=== PATIENT | female | born 1955 | race Asian ===

== ENCOUNTER 2022-10-19 13:41 | Inpatient (IN) | payer OTHER ==
[~2022-10-19] VITALS: Ht 157.5 cm; Wt 79.8 kg
--- NOTE | 2022-10-19 14:17 | NUR ---
[id number], from home, c/o rapid heart rate 180, Adenosine 12 mg given and converted Afib 108, denies pain A/O X4 22G STARED IN LEFT HAND NO S/S OF INFLITRATION.
[2022-10-19 14:26] LABS: BASOPHILS % (AUTO) 0.1 % (0.0-2.0); CALCIUM, SERUM 8.7 mg/dL (8.5-10.1); CARBON DIOXIDE 33 mmol/L (21-32); CHLORIDE 104 mmol/L (98-107); CREATININE 1.2 mg/dL (0.6-1.3); EOSINOPHILS % (AUTO) 0.5 % (0.0-6.0); GLUCOSE 134 mg/dL (74-106); HEMATOCRIT 52 % (33-45); HEMOGLOBIN 16.9 g/dL (11.5-14.8); LYMPHOCYTES # (AUTO) 1.5 K/uL (0.8-4.8); LYMPHOCYTES % (AUTO) 12.3 % (20.0-44.0); MEAN CORPUSCULAR HGB CONC 32 g/dl (31.0-36.0); MEAN CORPUSCULAR VOLUME 96 fL (82-100); MONOCYTES % (AUTO) 8.6 % (2.0-12.0); NEUTROPHILS # (AUTO) 9.6 K/uL (1.8-8.9); NEUTROPHILS % (AUTO) 78.5 % (43.0-81.0); PLATELET COUNT (AUTO) 229 K/uL (150-450); POTASSIUM 4.1 mmol/L (3.5-5.1); RED BLOOD CELL COUNT(AUTO) 5.47 MIL/uL (4.0-5.2); SODIUM SERUM 140 mmol/L (136-145); UREA NITROGEN, BLOOD 31 mg/dL (7-18); WHITE BLOOD COUNT (AUTO) 12.2 K/uL (4.3-11.0)
--- NOTE | 2022-10-19 14:55 | NUR ---
PT'S AFIB HAS IMPROVED HR 94
--- NOTE | 2022-10-19 15:23 | NUR ---
MOVE SHEET SUBMITTED.
[2022-10-19] MEDS ORDERED: METO25TA20 PO (15:48)
[2022-10-19] MEDS ORDERED: FURO20TA4 PO (15:48)
[2022-10-19] MEDS ORDERED: LEVO50TA8 PO (15:48)
[2022-10-19] MEDS ORDERED: RIVA10TA PO (15:48)
[2022-10-19] MEDS ORDERED: ATOR80TA PO (15:48)
[2022-10-19] MEDS ORDERED: TIOT4MIS3 INH (15:48)
[2022-10-19] MEDS ORDERED: ALBU90AE INH (15:48)
[2022-10-19] MEDS ORDERED: ASPIRIN 81 MG TAB.CHEW ONE (15:57)
[2022-10-19] MEDS ORDERED: ASPIRIN 81 MG TAB.CHEW PO ONE (16:00)
[2022-10-19] MEDS ORDERED: ASPIRIN 325 MG TABLET ONE (16:13)
--- NOTE | 2022-10-19 16:38 | NUR ---
COVID SWAB COLLECTED AND SENT TO LAB
--- NOTE | 2022-10-19 17:38 | NUR ---
room 325-1
[2022-10-19] MEDS ORDERED: Z GUARD REMEDY 4 OZ OINT TP PRN (18:00)
[2022-10-19] MEDS ORDERED: ACETAMINOPHEN 325 MG TABLET PO PRN (18:00)
[2022-10-19] MEDS ORDERED: MAGNESIUM HYDROXIDE 30 ML UDC PO PRN (18:00)
[2022-10-19] MEDS ORDERED: MAG HYDROX/AL HYDROX/SIMETH 30 ML UDC PO PRN (18:00)
[2022-10-19] MEDS ORDERED: ONDANSETRON HCL/PF 4 MG/2 ML VIAL IVP PRN (18:00)
[2022-10-19] MEDS ORDERED: METOPROLOL TARTRATE 25 MG TABLET PO SCH (18:00)
[2022-10-19] MEDS ORDERED: ENOXAPARIN SODIUM 40 MG/0.4 ML DISP.SYRIN SQ SCH (18:00)
--- NOTE | 2022-10-19 18:10 | NUR ---
report given to cami ROMAN for inpatient admission.
--- NOTE | 2022-10-19 18:42 | NUR ---
PT WAS TRANSFERED TO 3W IN STABLE CONDITION. CONTROLED AFIB NOTED ON THE MONITOR RATE OF 96. BREATHING IS WAS EVEN AND UNLABORED A/O X4
--- NOTE | 2022-10-19 19:00 | NUR ---
noc rn note received patient already in room. a/ox4. no s/s of apparent distress on room air. denies pain. will cont. with admission process.
--- NOTE | 2022-10-19 19:30 | NUR ---
ADMISSION NOTE RECEIVED PATIENT ALREADY IN ROOM, CAME IN AROUND 1840 PER REPORT. PATIENT A/OX4. NO S/S OF APPARENT DISTRESS ON 4LPM OF O2 VIA NC. DENIES ANY PAIN NOR CHEST PAIN. READING NSR ON THE TELE MONITOR WITH 88 BPM AT THIS TIME. IV ACCESS ON LT. HAND 22G INTACT AND PATENT. PATIENT WISHES TO BE FULL CODE. NEW ID BAND ON PATIENT. BELONGINGS CHECKED AND SIGNED FOR. REFUSED THOROUGH SKIN ASSESSMENT (REFUSED TO TAKE OF PANTS AND SPORTS BRA) BUT PER PATIENT HER SKIN INTACT. PATIENT ORIENTED IN THE UNIT AND THE USE OF CALL LIGHT. SAFETY IN PLACE. WILL CONTINUE WITH PATIENT'S PLAN OF CARE AND WILL FOLLOW THROUGH DOCTOR'S ORDERS.
[2022-10-19 20:00] VITALS: BP 140/69
[2022-10-19] MEDS: IV NS 0.9% 1,000 ML IV PRN (20:18)
--- NOTE | 2022-10-19 20:27 | NUR ---
noc rn note patient's scheduled 1800 enoxaparin and metoprolol given late. New admission, pharmacy said cannot change the time anymore and just note.
[2022-10-19] MEDS ORDERED: ATORVASTATIN CALCIUM PO SCH (22:00)
[2022-10-19] MEDS ORDERED: ALBUTEROL SULFATE 8 GM HFA.AER.AD IH PRN (22:30)
[2022-10-19] MEDS ORDERED: ATORVASTATIN 40 MG TABLET PO ONE (22:30)
--- NOTE | 2022-10-19 22:31 | NUR ---
noc rn note Called [facility], talked to Mary, pharmacist since verified home medications of patient with patient. Pharmacists to change Xarelto dose for tomorrow HS since Lovenox was already given tonight and patient said she takes her Xarelto every night. Per hospitalist, Saray, D/C lovenox and resume Xarelto for tomorrow. also, per patient her Metoprolol is 37.5 mg BID, Atorvastatin 80mg-- already changed by Pharmacist. Per patient someone could bring in her Stiolto INH tomorrow since Pharmacist said they do not carry medication here. orders carried out.
[2022-10-20] VITALS: BP 134/74
[2022-10-20 06:36] LABS: BASOPHILS % (AUTO) 0.1 % (0.0-2.0); EOSINOPHILS % (AUTO) 0.4 % (0.0-6.0); HEMATOCRIT 50 % (33-45); HEMOGLOBIN 15.8 g/dL (11.5-14.8); LYMPHOCYTES # (AUTO) 1.4 K/uL (0.8-4.8); LYMPHOCYTES % (AUTO) 10.8 % (20.0-44.0); MEAN CORPUSCULAR HGB CONC 32 g/dl (31.0-36.0); MEAN CORPUSCULAR VOLUME 97 fL (82-100); MONOCYTES # (AUTO) 0.9 K/uL (0.1-1.30); MONOCYTES % (AUTO) 6.9 % (2.0-12.0); NEUTROPHILS # (AUTO) 10.9 K/uL (1.8-8.9); NEUTROPHILS % (AUTO) 81.8 % (43.0-81.0); PLATELET COUNT (AUTO) 207 K/uL (150-450); RED BLOOD CELL COUNT(AUTO) 5.12 MIL/uL (4.0-5.2); WHITE BLOOD COUNT (AUTO) 13.3 K/uL (4.3-11.0)
[2022-10-20 06:53] LABS: CALCIUM, SERUM 8.2 mg/dL (8.5-10.1); CREATININE 0.9 mg/dL (0.6-1.3); POTASSIUM 4.4 mmol/L (3.5-5.1)
[2022-10-20] MEDS: LEVOTHYROXINE SODIUM 50 MCG TABLET PO SCH (06:54)
--- NOTE | 2022-10-20 06:56 | NUR ---
noc rn note patient c/o pain on her neck, non-radiating, checked patient's BP 129/81, hr-80, and saturation 96% on room air. Patient refused to take pain medication at the moment. Endorsed to
--- NOTE | 2022-10-20 07:25 | NUR ---
REPAIRER HANDTOOLS OPENING NOTES RECEIVED PATIENT AWAKE IN BED IN NO ACUTE SIGNS OF DISTRESS. A/O X4. ABLE TO MAKE NEEDS KNOWN, DENIES PAIN OR DISCOMFORTS AT THIS TIME. ON ROOM AIR, TOLERATING WELL, BREATHING EVEN AND UNLABORED. ON TELE-MONITOR WITH CURRENT READING OF NSR, HR 85, CLARA C//O CARDIAC DISTRESS VOICED AT THIS TIME. IV ACCESS ON LEFT HAND #20G INTACT WITH IV FLUIDS OF NS RUNNING @ 75ML/HR , NO S/S OF INFILTRATION AT SITE NOTED. SAFETY MEASURES IN PLACE: BED LOCKED AND IN LOWEST POSITION, CALL LIGHT WITHIN REACH AND SIDE RAILS UP X2. WILL CONTINUE TO MONITOR PT ACCORDINGLY.
--- NOTE | 2022-10-20 07:31 | NUR ---
noc rn closing note Patient reading NSR throughout shift with 88 bpm this am. needs attended. all scheduled medications administered. endorsed to JESSIE CONSTANTINO for continuity of care.
[2022-10-20] MEDS ORDERED: ALBUTEROL FS 2.5 MG/0.5 ML VIAL.NEB NEB PRN (08:00)
[2022-10-20] MEDS: FUROSEMIDE 20 MG TABLET PO SCH (08:28)
[2022-10-20] MEDS: METOPROLOL TARTRATE 25 MG TABLET PO SCH ×2 (08:29→16:16)
[2022-10-20] MEDS: HYDROCODONE/APAP 5/325MG TABLET PO PRN ×2 (08:33→21:45)
--- NOTE | 2022-10-20 08:33 | NUR ---
RN NOTES PT NOTED WITH MILD SOB AFTER WALKING TO THE BATHROOM. PT REQUESTED TO BE PLACED ON 02 VIA N/C AT 2LPM, TOLERATING WELL AND SOB RELIEVED.
[2022-10-20 08:38] VITALS: BP 147/83
--- NOTE | 2022-10-20 08:42 | NUR ---
RN NOTES PT C/O ACHING RIGHT LOWER BACK PAIN, 6/10 SCALE. PRN NORCO 5/325 MG PO GIVEN AT 0833. WILL CONTINUE TO MONITOR AND REASSESS PT.
[2022-10-20] MEDS ORDERED: RIVAROXABAN 10 MG TABLET PO SCH (09:00)
[2022-10-20] MEDS ORDERED: METOPROLOL TARTRATE 25 MG TABLET PO SCH (09:00)
[2022-10-20 10:12] LABS: ABG BASE EXCESS 6.1 mmol/L; ABG OXYGEN SATURATION 95.8 % (92.0-98.5); ABG PCO2 71.2 mmHg (35.0-45.0); ABG PH 7.315 (7.350-7.450); ABG PO2 85.6 mmHg (75.0-100.0); COHb 1.9 % (0.5-1.5); MetHb 0.4 % (0.0-1.5); O2Hb 93.6 % (94.0-97.0); SITE, ABG Right Radial; VENT MODE, BG 2L NC
--- NOTE | 2022-10-20 10:34 | NUR ---
RN NOTES RESPIRATORY THERAPIST DID ABG WITH HIGH PCO2 71.2 NOTED. RT PLACED PT ON 02 @ 1LPM VIA N/S. HE VERBALIZED THAT HE WILL REPORT IT TO DR SEE.
[2022-10-20] MEDS: IPRATROPIUM NEB FS 0.5 MG/2.5 ML AMPUL.NEB NEB SCH ×3 (11:23→23:30)
--- NOTE | 2022-10-20 11:26 | NUR ---
RN NOTES PT PICKED-UP VIA WHEELCHAIR FOR CT OF CHEST W/O CONTRAST.
[2022-10-20 12:02] VITALS: BP 158/88
[2022-10-20] MEDS: IV NS 0.9% 1,000 ML IV PRN (14:30)
--- NOTE | 2022-10-20 15:37 | NUR ---
RT PATIENT REFUSED RESP TX STATING SHE WAS FEELING HEART PALPITATIONS LAST TIME SHE TOOK A TX AND DID NOT WANT THEM AT THIS TIME. NO SOB NOTED.
[2022-10-20] MEDS ORDERED: CLONIDINE HCL 0.1 MG TABLET PO PRN (18:00)
[2022-10-20] MEDS: RIVAROXABAN 10 MG TABLET PO SCH (18:10)
--- NOTE | 2022-10-20 18:46 | NUR ---
SNUFF MAKER CLOSING NOTES PATIENT IN BED AWAKE AND RESTING AT MODERATE HIGH BACKREST POSITION. A/O X4. ABLE TO MAKE NEEDS KNOWN. ON 02 VIA N/C @ 1LPM, TOLERATING WELL, BREATHING EVEN AND UNLABORED. ON TELE-MONITOR WITH CURRENT READING OF NSR, HR 86, NO C//O CARDIAC DISTRESS VOICED AT THIS TIME. IV ACCESS ON LEFT HAND #20G INTACT WITH IVF OF NS RUNNING @ 75ML/HR, NO S/S OF INFILTRATION AT SITE NOTED. ALL NEEDS /CARE ATTENDED WELL. SAFETY MEASURES KEPT IN PLACE: BED LOCKED AND IN LOWEST POSITION, CALL LIGHT WITHIN REACH AND SIDE RAILS UP X2. WILL ENDORSE STAN TO TAB CUTTING MACHINE OPERATOR NURSE.
--- NOTE | 2022-10-20 19:30 | NUR ---
TELE NEW CLIENT BANKING SERVICES CLERK INITIAL NOTES Received report from am nurse and seen pt in her room alert oriented x3 , with O2 at 3liters via NC. Denies any pain or any discomfort. Pt with IVF of NS at 75ml/hr infusing at this time on her left hand . she also on Tele Sinus Rhythm per monitor. kept her warm and comfortable at all times. will continue monitoring.
[2022-10-20 20:00] VITALS: BP 155/95
--- NOTE | 2022-10-20 20:35 | NUR ---
tele instructional developer notes RT set up BI- Pap as ordered for pt breathing and comfort.
[2022-10-20] MEDS: ATORVASTATIN 40 MG TABLET PO SCH (21:44)
--- NOTE | 2022-10-20 23:05 | NUR ---
tele manager field investigations notes RT told me that patient request to have her Bi-pap off and back to Nasal Canula. No signs of any acute distress noted at this time. Pt resting comfortably. Tele Sinus Rhythm per monitor. Kept her warm and comfortable at all times. will continue monitoring.
[2022-10-21] VITALS: BP 153/87
[2022-10-21 05:02] VITALS: BP 131/92
[2022-10-21] MEDS: LEVOTHYROXINE SODIUM 50 MCG TABLET PO SCH (06:51)
[2022-10-21 07:00] VITALS: BP 121/81
--- NOTE | 2022-10-21 07:13 | NUR ---
tele extension work director closing notes pt awake now and watching TV , Stable throughout the night , she had BI-PAP last night but a few hours only . still on O2 at 2 liter via nasal canula. all due meds given and all needs met. Tele Sinus Rhythm per monitor. Kept her warm and comfortable at all times. bed in low and lock in position with side rails X2 up. Pt able to ambulate to the restroom by herself but noticed SOB but pt tolerated well with O2 . Educate her regarding her breathing treatment and bi-pap. she understood well. Pt needs encouragement regarding her medication. will endorse to am nurse for continuity of care. call light at reach.
--- NOTE | 2022-10-21 07:25 | NUR ---
QUARRY SUPERVISOR OPEN PIT OPENING NOTES PATIENT RECEIVED AWAKE IN BED IN NO ACUTE SIGNS OF DISTRESS. A/O X4. ABLE TO MAKE NEEDS KNOWN, DENIES PAIN OR DISCOMFORTS AT THIS TIME. ON SUPPLEMENTAL 02 VIA N/C @ 1LPM AT THIS TIME, TOLERATING WELL, BREATHING EVEN AND UNLABORED. ON TELE-MONITOR WITH CURRENT READING OF NSR, HR 92, NO C//O CARDIAC DISTRESS VOICED AT THIS TIME. PT WITH NO IV ACCESS AT THIS TIME, PT VERBALIZED THAT SHE WANTS IV INSERTION LATER. SAFETY MEASURES IN PLACE: BED LOCKED AND IN LOWEST POSITION, CALL LIGHT WITHIN REACH AND SIDE-RAILS UP X2. WILL CONTINUE TO MONITOR PT ACCORDINGLY.
[2022-10-21] MEDS: IPRATROPIUM NEB FS 0.5 MG/2.5 ML AMPUL.NEB NEB SCH ×3 (07:35→23:30)
[2022-10-21] MEDS: FUROSEMIDE 20 MG TABLET PO SCH (08:52)
[2022-10-21] MEDS: METOPROLOL TARTRATE 25 MG TABLET PO SCH ×2 (08:53→16:23)
[2022-10-21] MEDS ORDERED: PRED50TA PO (09:44)
--- NOTE | 2022-10-21 11:02 | NUR ---
RN NOTES NEW IV ACCESS #22G INSERTED TO RIGHT HAND, SECURED WITH TAPE AND DATED.
[2022-10-21 16:00] VITALS: BP 139/85
[2022-10-21] MEDS: RIVAROXABAN 10 MG TABLET PO SCH (17:19)
--- NOTE | 2022-10-21 18:38 | NUR ---
MS RN CLOSING NOTES PATIENT IN BED AWAKE AND WATCHING TV AT THIS TIME. HOB IS ELEVATED. A/O X4. ABLE TO MAKE NEEDS KNOWN. ON ROOM AIR, TOLERATING WELL, BREATHING EVEN AND UNLABORED. IV ACCESS ON RIGHT HAND #22G INTACT WITH IVF OF NS @ 75ML/HR INFUSING WELL, NO S/S OF INFILTRATION AT SITE NOTED. ALL NEEDS /CARE ATTENDED WELL. SAFETY MEASURES KEPT IN PLACE: BED LOCKED AND IN LOWEST POSITION, CALL LIGHT WITHIN REACH AND SIDE RAILS UP X2. WILL ENDORSE POC TO SHOTBLASTER NURSE.
--- NOTE | 2022-10-21 19:31 | NUR ---
MS AMANDA INITIAL NOTES RECEIVED REPORT FROM AM NURSE AND SEEN PT IN BED AWAKE AND ALERT LYING IN BED WITH O2 AT 2 LITERS VIA NASAL CANULA , DENIES ANY PAIN OR ANY DISCOMFORT. PT AWARE OF HER BI-PAP LATER AND EDUCATE HER WHY SHE NEEDS IT AND PATIENT UNDERSTOOD WELL. KEPT HER WARM AND COMFORTABLE AT ALL TIMES. PLACE CALL LIGHT AT REACH. WILL CONTINUE MONITORING.
[2022-10-21 20:00] VITALS: BP 143/80
[2022-10-21] MEDS: ATORVASTATIN 40 MG TABLET PO SCH (21:45)
--- NOTE | 2022-10-21 23:17 | NUR ---
ms vadim notes checked pt she's sleeping at this time, no signs of any acute distress noted. Pt still on Bi-pap as ordered. will continue monitoring. place call light at reach.
[2022-10-22] MEDS: LEVOTHYROXINE SODIUM 50 MCG TABLET PO SCH (06:36)
[2022-10-22 07:00] VITALS: BP 138/68
--- NOTE | 2022-10-22 07:27 | NUR ---
ms processes chemical design engineer closing notes pt woke up and watching TV at this time. done with her BI_PAP , now she's on O2 at 2 liters via nasal canula. pt still wheezing but bu denies any discomfort. She stated" I'm ok , I hope my machine and oxygen tank coning today so I can go home. I told her I will endorse to am nurse and to the charge as well. Synthroid given as ordered and pt request as well . Kept her warm and comfortable at all times. will endorse to am nurse for continuity of care.
[2022-10-22] MEDS: IPRATROPIUM NEB FS 0.5 MG/2.5 ML AMPUL.NEB NEB SCH ×2 (07:52→15:13)
--- NOTE | 2022-10-22 07:55 | NUR ---
RN OPENING NOTE RECEIVED PATIENT IN BED AO x 4, ABLE TO RESPONDS PHYSICAL STIMULI. RESPIRATORY EVEN AND UNLABORED IN OXYGEN AT 2 Ls VIA NC. IN NO ACUTE DISTRESS OBSERVED. SKIN IS WARM TO TOUCH, KEEP CLEAN/DRY. KEPT ELEVATED HOB FOR ASPIRATION PRECAUTION/ENSURE AIRWAY, ALSO LOWEST BED POSITIONED. BED ALARM IS ON AT ALL THE TIME FOR SAFETY. CALL LIGHT WITHIN REACH, WILL CONTINUE TO MONITOR.
[2022-10-22] MEDS: FUROSEMIDE 20 MG TABLET PO SCH (08:24)
[2022-10-22] MEDS: METOPROLOL TARTRATE 25 MG TABLET PO SCH ×2 (08:25→16:24)
[2022-10-22 16:00] VITALS: BP 123/71
[2022-10-22] MEDS: RIVAROXABAN 10 MG TABLET PO SCH (17:44)
--- NOTE | 2022-10-22 18:51 | NUR ---
RN CLOSING NOTE PATIENT RESTING IN BED. IN NO ACUTE DISTRESS OBSERVED. RESPIRATORY EVEN AND UNLABORED IN OXYGEN 2Ls VIA NC, NO SOB OR DESATURATE OBSERVED. SKIN IS WARM TO TOUCH KEEP CLEAN/DRY. KEPT ELEVATED HOB FOR ENSURE AIRWAY/ASPIRATION PRECAUTION, AND LOWEST BED POSITION. BED ALARM IS ON AT ALL THE TIME FOR SAFETY. CALL LIGHT WITHIN REACH, WILL ENDORSE COMMERCIAL OCEAN CLAMMER.
--- NOTE | 2022-10-22 19:50 | NUR ---
MS RN OPENING NOTES RECEIVED PATIENT IN BED AWAKE, ALERT AND ORIENTED. A/O X 4. ON 2L O2 VIA NC, BREATHING EVEN AND UNLABORED, NO DISTRESS OR SOB NOTED. HOB ELEVATED FOR ASPIRATION PRECAUTION/ENSURE AIRWAY. SAFETY PRECAUTIONS IN PLACE WITH BED IN LOWEST AND LOCK POSITION. BED ALARM IS ON AT ALL THE TIME FOR SAFETY. TRAY AND CALL LIGHT WITHIN EASY REACH, WILL CONTINUE TO MONITOR.
[2022-10-22 20:00] VITALS: BP 141/72
[2022-10-22] MEDS: ATORVASTATIN 40 MG TABLET PO SCH (21:38)
[2022-10-22 22:48] VITALS: BP 141/72
[2022-10-23] MEDS: IPRATROPIUM NEB FS 0.5 MG/2.5 ML AMPUL.NEB NEB SCH ×4 (00:10→23:43)
[2022-10-23] MEDS: IV NS 0.9% 1,000 ML IV PRN (05:00)
[2022-10-23 07:00] VITALS: BP 134/75
--- NOTE | 2022-10-23 07:29 | NUR ---
MS RN CLOSING NOTES PATIENT IN BED AWAKE, ALERT AND ORIENTED. A/O X 4. ON 2L O2 VIA NC, BREATHING EVEN AND UNLABORED, NO DISTRESS OR SOB NOTED. HOB ELEVATED FOR ASPIRATION PRECAUTION/ENSURE AIRWAY. ALL DUE MEDS GIVEN. IV FLUID CHANGED BUT REFUSED TO RUN, WILL ENDORSE TO THE NEXT SHIFT TO RUN AGAIN SINCE PATIENT IS ASKING FOR SOME TIME. SAFETY PRECAUTIONS MAINTAINED WITH BED IN LOWEST AND LOCK POSITION. BED ALARM IS ON AT ALL THE TIME FOR SAFETY. TRAY AND CALL LIGHT WITHIN EASY REACH, WILL ENDORSE TO THE NEXT SHIFT.
--- NOTE | 2022-10-23 08:02 | NUR ---
RN OPENING NOTE RECEIVED PATIENT AWAKE AND ORIENTED x 4, ABLE TO RESPONDS PHYSICAL STIMULI. RESPIRATORY EVEN AND UNLABORED IN OXYGEN AT 2 Ls VIA NC. IN NO ACUTE DISTRESS OBSERVED. SKIN IS WARM TO TOUCH, KEEP CLEAN/DRY. KEPT ELEVATED HOB FOR ASPIRATION PRECAUTION/ENSURE AIRWAY, ALSO LOWEST BED POSITIONED. BED ALARM IS ON AT ALL THE TIME FOR SAFETY. CALL LIGHT WITHIN REACH, WILL CONTINUE TO MONITOR.
[2022-10-23] MEDS: LEVOTHYROXINE SODIUM 50 MCG TABLET PO SCH (08:36)
[2022-10-23] MEDS: METOPROLOL TARTRATE 25 MG TABLET PO SCH ×2 (08:37→17:10)
[2022-10-23] MEDS: FUROSEMIDE 20 MG TABLET PO SCH (08:37)
[2022-10-23 16:00] VITALS: BP 115/73
[2022-10-23] MEDS: RIVAROXABAN 10 MG TABLET PO SCH (17:09)
--- NOTE | 2022-10-23 18:41 | NUR ---
RN CLOSING NOTE PATIENT RESTING IN BED. IN NO ACUTE DISTRESS OBSERVED. RESPIRATORY EVEN AND UNLABORED IN OXYGEN 2 L, NO SOB OR DESATURATION NOTED. SKIN IS WARM TO TOUCH KEEP CLEAN/DRY. ENCOURAGED PATIENT TO ORAL FLUID INTAKE TOLERATED. KEPT ELEVATED HOB FOR ENSURE AIRWAY/ASPIRATION PRECAUTION, AND LOWEST BED POSITION. BED ALARM IS ON AT ALL THE TIME FOR SAFETY. CALL LIGHT WITHIN REACH, WILL ENDORSE HEAD SULFIDE OPERATOR.
--- NOTE | 2022-10-23 19:32 | NUR ---
RN OPENING NOTES; RECEIVED PT IN BED SLEEPING COMFORTABLE BUT EASY TO AROUSED,ON 2L O2 VIA NC RAVEN WELL,BREATHING EVEN AND UNLABORED,NO SIGN SOB/DISTRESS NOTED,IV ACCESS ON RHAND 22G SL,INTACT AND PATENT,SAFETY MEASURE IN PLACE,CALL LIGHT WITHIN REACH,WILL CONTINUE TO MONITOR.
[2022-10-23] MEDS: ATORVASTATIN 40 MG TABLET PO SCH (21:15)
[2022-10-23 21:22] VITALS: BP 115/71
[2022-10-24] MEDS: LEVOTHYROXINE SODIUM 50 MCG TABLET PO SCH (06:17)
--- NOTE | 2022-10-24 06:22 | NUR ---
RN CLOSING NOTES; PT IN BED SLEEPING COMFORTABLE BUT EASY TO AROUSED,AOX4 ABLE TO MAKE NEEDS KNOWN,ON 2L O2 VIA NC RAVEN WELL,BREATHING EVEN AND UNLABORED,NO SIGN SOB/DISTRESS NOTED,DUE MEDS GIVEN ORDER,IV ACCESS ON RHAND 22G SL,INTACT AND PATENT,PT BRP WITH STEADY GAIT,SAFETY MEASURE IN PLACE,WILL ENDORSED TO NEX SHIFT.
--- NOTE | 2022-10-24 07:15 | NUR ---
MS RN OPENING NOTES RECEIVED PATIENT ASLEEP IN BED, EASILY AWAKEN, A/O X4. ABLE TO MAKE NEEDS FULLY KNOWN, DENIES PAIN OR DISCOMFORT AT THIS TIME. ON ROOM AIR, TOLERATING WELL, BREATHING EVEN AND UNLABORED. IV ACCESS ON RIGHT HAND #22G INTACT, REFUSED IV FLUIDS FOR NOW. NO S/S OF INFILTRATION AT SITE NOTED. SAFETY MEASURES IN PLACE: BED LOCKED AND IN LOWEST POSITION, CALL LIGHT WITHIN REACH AND SIDE RAILS UP X2. WILL CONTINUE TO MONITOR PT ACCORDINGLY.
[2022-10-24] MEDS: IPRATROPIUM NEB FS 0.5 MG/2.5 ML AMPUL.NEB NEB SCH ×3 (07:31→23:25)
[2022-10-24 08:00] VITALS: BP 128/75
[2022-10-24] MEDS: METOPROLOL TARTRATE 25 MG TABLET PO SCH ×2 (08:28→16:44)
[2022-10-24] MEDS: FUROSEMIDE 20 MG TABLET PO SCH (08:29)
[2022-10-24 16:44] VITALS: BP 105/70
[2022-10-24] MEDS: RIVAROXABAN 10 MG TABLET PO SCH (17:05)
--- NOTE | 2022-10-24 18:59 | NUR ---
MS RN CLOSING NOTES PATIENT ASLEEP IN BED, EASILY AWAKEN, A/O X4. ABLE TO MAKE NEEDS FULLY KNOWN, DENIES PAIN OR DISCOMFORT AT THIS TIME. ON 2LPM O2 VIA NC WITHOUT ANY DIFFICULTY. BREATHING EVEN AND UNLABORED. IV ACCESS ON RIGHT HAND #22G INTACT, STILL REFUSING IVF. SAFETY MEASURES MAINTAINED: BED IN LOCKED AND IN LOWEST POSITION, CALL LIGHT WITHIN REACH AND SIDE RAILS UP X2. WILL ENDORSE TO MULTINEEDLE SHIRRER NURSE.
[2022-10-24 20:00] VITALS: BP 125/65
[2022-10-24] MEDS: ATORVASTATIN 40 MG TABLET PO SCH (21:07)
[2022-10-25] MEDS: LEVOTHYROXINE SODIUM 50 MCG TABLET PO SCH (06:03)
--- NOTE | 2022-10-25 08:00 | NUR ---
RN OPENING NOTES; PT IN BED SLEEPING COMFORTABLE BUT EASY TO AROUSED,AOX4 ABLE TO MAKE NEEDS KNOWN,ON 2L O2 VIA NC RAVEN WELL,BREATHING EVEN AND UNLABORED,NO SIGN SOB/DISTRESS NOTED, IV ACCESS ON RHAND 22G SL,INTACT AND PATENT,PT BRP WITH STEADY GAIT,SAFETY MEASURE IN PLACE,WILL CONTINUE TO MONITOR.
[2022-10-25] MEDS: IPRATROPIUM NEB FS 0.5 MG/2.5 ML AMPUL.NEB NEB SCH ×2 (08:22→15:30)
[2022-10-25] MEDS: FUROSEMIDE 20 MG TABLET PO SCH (09:29)
[2022-10-25 09:31] VITALS: BP 129/66
[2022-10-25] MEDS: METOPROLOL TARTRATE 25 MG TABLET PO SCH (09:31)
[2022-10-25 11:35] LABS: ABG BASE EXCESS 6.7 mmol/L; ABG OXYGEN SATURATION 89.8 % (92.0-98.5); ABG PCO2 50.4 mmHg (35.0-45.0); ABG PH 7.429 (7.350-7.450); AaDO2 33.4 mmHg; COHb 1.1 % (0.5-1.5); MetHb 0.2 % (0.0-1.5); O2Hb 88.6 % (94.0-97.0); SITE, ABG Right Radial; VENT MODE, BG ROOM AIR
--- NOTE | 2022-10-25 17:00 | NUR ---
DISCHARGE NOTE PATIENT DISCHARGED TO HOME A/OX4, ON RA, TOLERATING WELL. NO SIGNS OF RESPIRATORY OR CARDIAC DISTRESS NOTED. IV ACCESS REMOVED ASEPTICALLY, NO SIGNS OF BLEEDING NOTED. PATIENT WILL RECEIVE THE BIPAP AT HOME AT 6 OR 7PM TODAY, PATIENT SPOKE TO JUAN AT BIPAP COMP. ALL BELONGINGS ACCOUNTED TO THE PATIENT. DISCHARGE INSTRUCTIONS RELAYED TO THE PATIENT, VERBALIZED UNDERSTANDING. DISCHARGED.
== END 2022-10-25 17:00 | disposition home or self-care (01) | DRG 201 ==
LOC: ER 13:45 → TELE 17:53 → MED 10-21 09:52
PROVIDERS: ADMIT Internal Medicine; ATTEND Internal Medicine
DX: I47.1 Supraventricular tachycardia (principal); J96.21 Acute and chronic respiratory failure with hypoxia; I21.A1 Myocardial infarction type 2; I48.91 Unspecified atrial fibrillation; I12.9 Hypertensive chronic kidney disease with stage 1 through stage 4 chronic kidney disease, or unspecified chronic kidney disease; J44.1 Chronic obstructive pulmonary disease with (acute) exacerbation; Z20.822 Contact with and (suspected) exposure to COVID-19; E78.5 Hyperlipidemia, unspecified; I48.0 Paroxysmal atrial fibrillation; N18.9 Chronic kidney disease, unspecified; E03.9 Hypothyroidism, unspecified; E66.2 Morbid (severe) obesity with alveolar hypoventilation; F17.200 Nicotine dependence, unspecified, uncomplicated; M35.1 Other overlap syndromes; Z79.899 Other long term (current) drug therapy; Z79.01 Long term (current) use of anticoagulants; Z79.51 Long term (current) use of inhaled steroids; R91.8 Other nonspecific abnormal finding of lung field; Z68.32 Body mass index [BMI] 32.0-32.9, adult; J84.10 Pulmonary fibrosis, unspecified
CPT/HCPCS: 36415; 36600; 71045-TC; 71250-TC; 80048-TC; 82803-TC; 83735-TC; 84100-TC; 84443-TC; 84484-TC; 85025-TC; 87081-TC; 93307-TC; 94799-TC; 97116-TC; 97530-TC; A4223; C9803; G0378; J1650; J7030